=== PATIENT | female | born 1960 | race Hispanic/Latino ===

== ENCOUNTER 2019-06-24 23:21 | Emergency (ER) | payer MEDICARE ==
[~2019-06-24 23:21] MED LIST: ACET1TAB12 PO; AEC81 PO; CALC-322 PO; DILT240C35 PO; DOCO1CAP5 PO; LORA1TAB3 PO; NAPR500T6 PO; SERT100T12 PO; TRAM50TA4 PO
[2019-06-25] MEDS ORDERED: ALBUTEROL SULFATE 0.083% 2.5 MG/3 ML INH IH ONE ×2 (00:51→01:00)
[2019-06-25] MEDS ORDERED: PREDNISONE 20 MG TABLET ONE (01:16)
[2019-06-25] MEDS ORDERED: AZITHROMYCIN 250 MG TABLET PO ONE (01:33)
== END 2019-06-25 02:08 | disposition home or self-care (01) ==
LOC: EDH 23:21
DX: J45.901 Unspecified asthma with (acute) exacerbation (principal); M19.90 Unspecified osteoarthritis, unspecified site; E78.5 Hyperlipidemia, unspecified; I10 Essential (primary) hypertension
CPT/HCPCS: 71046; 94640

== ENCOUNTER 2020-04-07 00:08 | Inpatient (IN) | payer MEDICARE ==
[~2020-04-07] VITALS: Ht 160 cm; Wt 94.2 kg
[2020-04-07] VITALS (8 sets, daily range): BP systolic 113–148; BP diastolic 47–78
[~2020-04-07 00:08] MED LIST changes: +BUSP5TAB3 PO; +DILT-118 PO; -DILT240C35 PO; +METF-444 PO; +MIRA25TA PO; +OMEP40CA13 PO; +SIMV5TAB58 PO; +TRAZ-187 PO
[2020-04-07 00:40] LABS: APPEARANCE,URINE Clear (CLEAR); BILIRUBIN,URINE Negative (NEGATIVE); COLOR,URINE Yellow (YELLOW); GLUCOSE, URINE (UA) TRACE mg/dL (NEGATIVE); KETONES,URINE Negative (NEGATIVE); LEUKOCYTE ESTERASE ,URINE Negative (NEGATIVE); NITRATE,URINE Negative (NEGATIVE); OCCULT BLOOD,URINE Negative (NEGATIVE); PH,URINE >=9.0 (5.0-8.0); PROTEIN,URINE POS 1+ mg/dL (NEGATIVE); UROBILINOGEN,URINE 0.2 mg/dL (0.2-1.0)
[2020-04-07] MEDS ORDERED: ONDANSETRON HCL 4 MG/2 ML VIAL ONE (01:11)
[2020-04-07] MEDS ORDERED: MORPHINE SULFATE 2 MG/ML 1ML SYG ONE (01:11)
[2020-04-07] MEDS ORDERED: ACETAMINOPHEN EXTRA STRENGTH 500 MG TABLET ONE (01:11)
[2020-04-07] MEDS ORDERED: SODIUM CHLORIDE 0.9% 1000ML 1,000 ML IV ONE ×2 (01:12→04:51)
[2020-04-07 01:16] LABS: BASOPHILS % (AUTO) 0.2 % (0.0-5.0); EOSINOPHILS % (AUTO) 0.3 % (0.0-8.0); HEMATOCRIT 33.9 % (36-48); LYMPHOCYTES % (AUTO) 2.8 % (21.0-51.0); MEAN CORPUSCULAR HEMOGLOBIN 27.4 pg (27.0-33.0); MEAN CORPUSCULAR HGB CONC 32.4 g/dL (32.0-36.0); MEAN CORPUSCULAR VOLUME 84.3 fL (79-99); MONOCYTES % (AUTO) 4.3 % (3.0-13.0); NEUTROPHILS % (AUTO) 91.6 % (40.0-77.0); PLATELET COUNT (AUTO) 242 K/uL (130-400); RED BLOOD CELL COUNT(AUTO) 4.02 MIL/uL (4.00-5.50); RED CELL DISTRIBUTION WIDTH 13.8 % (11.0-15.5); WHITE BLOOD COUNT (AUTO) 21.3 K/uL (4.8-10.8)
[2020-04-07 01:47] LABS: CREATININE 0.6 mg/dL (0.5-1.5); POTASSIUM 3.6 mmol/L (3.5-5.1)
[2020-04-07 01:51] LABS: ALBUMIN 3.2 g/dL (3.5-5.0); BILIRUBIN,TOTAL 0.3 mg/dL (0.2-1.0); TOTAL PROTEIN, SERUM 7.6 g/dL (6.0-8.3)
[2020-04-07] MEDS ORDERED: IOHEXOL-350 75 ML VIAL IV ONE (02:38)
[2020-04-07] MEDS ORDERED: ZOSYN 3.375GM+NS 50ML 50 ML IV ONE (04:05)
[2020-04-07] MEDS ORDERED: VANCOMYCIN 1GM+NS 250ML 500 ML IV ONE (04:51)
[2020-04-07 06:31] LABS: HEMATOCRIT 31.9 % (36-48); MEAN CORPUSCULAR HEMOGLOBIN 27.2 pg (27.0-33.0); MEAN CORPUSCULAR HGB CONC 31.7 g/dL (32.0-36.0); MEAN CORPUSCULAR VOLUME 85.8 fL (79-99); RED BLOOD CELL COUNT(AUTO) 3.72 MIL/uL (4.00-5.50); WHITE BLOOD COUNT (AUTO) 26.2 K/uL (4.8-10.8)
[2020-04-07] MEDS ORDERED: PREG50CA63 PO (06:40)
[2020-04-07] MEDS ORDERED: ALBU8.5H8 IH (06:40)
[2020-04-07] MEDS ORDERED: CALC600T15 PO (06:40)
[2020-04-07 06:50] LABS: CREATININE 0.7 mg/dL (0.5-1.5); MAGNESIUM 1.4 mg/dL (1.80-2.40); POTASSIUM 4.3 mmol/L (3.5-5.1)
[2020-04-07] MEDS ORDERED: DEXTROSE 50%-WATER 50 ML DISP.SYRIN IV PRN ×2 (08:00→11:00)
[2020-04-07] MEDS ORDERED: GLUCAGON 1MG KIT 1 MG ML IM PRN ×2 (08:00→11:00)
[2020-04-07] MEDS ORDERED: MORPHINE SULFATE 2 MG/ML 1ML SYG IVP PRN ×2 (11:00→20:00)
[2020-04-07] MEDS ORDERED: INSULIN R PO SS1 SQ SCH (11:30)
[2020-04-07] MEDS: INSULIN HUMULIN R 100 UNIT/ML 3ML SQ SCH ×3 (11:30→21:48)
[2020-04-07] MEDS ORDERED: MAGNESIUM 2GM PREMIX 50ML 50 ML IV PRN (12:45)
[2020-04-07] MEDS: ZOSYN 3.375GM+NS 50ML 50 ML IV SCH ×2 (13:06→21:44)
[2020-04-07 13:43] LABS: INR 1.06 (0.85-1.15); PROTHROMBIN TIME 11.4 SEC (9.6-11.6)
[2020-04-07] MEDS: INSULIN GLARGINE 100 UNITS/ML 10 ML VIAL SQ SCH ×2 (14:30→21:48)
[2020-04-07] MEDS: LACTATED RINGERS 1000ML 1,000 ML IV SCH (14:55)
[2020-04-07] MEDS ORDERED: FENTANYL CITRATE PF 50 MCG/1 ML 2ML VIAL ONE (15:11)
[2020-04-07] MEDS ORDERED: MIDAZOLAM HCL 1 MG/ML 2ML VIAL ONE (15:12)
[2020-04-08] VITALS (7 sets, daily range): BP systolic 129–147; BP diastolic 61–74
[2020-04-08] MEDS: MORPHINE SULFATE 2 MG/ML 1ML SYG IVP PRN ×6 (01:32→22:03)
[2020-04-08] MEDS: LACTATED RINGERS 1000ML 1,000 ML IV SCH ×3 (05:20→22:05)
[2020-04-08] MEDS: ZOSYN 3.375GM+NS 50ML 50 ML IV SCH ×3 (05:20→22:02)
[2020-04-08 05:26] LABS: HEMATOCRIT 33.9 % (36-48); MEAN CORPUSCULAR HEMOGLOBIN 27.3 pg (27.0-33.0); MEAN CORPUSCULAR HGB CONC 32.2 g/dL (32.0-36.0); MEAN CORPUSCULAR VOLUME 84.8 fL (79-99); RED CELL DISTRIBUTION WIDTH 14.2 % (11.0-15.5); WHITE BLOOD COUNT (AUTO) 19.5 K/uL (4.8-10.8)
[2020-04-08 05:54] LABS: ALBUMIN 2.6 g/dL (3.5-5.0); BILIRUBIN,TOTAL 0.5 mg/dL (0.2-1.0); CREATININE 0.6 mg/dL (0.5-1.5); POTASSIUM 3.8 mmol/L (3.5-5.1); TOTAL PROTEIN, SERUM 7.4 g/dL (6.0-8.3)
[2020-04-08] MEDS: INSULIN HUMULIN R 100 UNIT/ML 3ML SQ SCH ×4 (06:16→22:52)
[2020-04-08] MEDS: ONDANSETRON HCL 4 MG/2 ML VIAL IVP PRN ×2 (08:17→22:02)
[2020-04-08] MEDS: ENOXAPARIN SODIUM 30 MG/0.3 ML SQ SCH (08:21)
[2020-04-08] MEDS: INSULIN GLARGINE 100 UNITS/ML 10 ML VIAL SQ SCH (22:13)
[2020-04-09] MEDS: MORPHINE SULFATE 2 MG/ML 1ML SYG IVP PRN ×3 (03:12→11:20)
[2020-04-09 03:49] VITALS: BP 129/58
[2020-04-09] MEDS: ZOSYN 3.375GM+NS 50ML 50 ML IV SCH ×3 (06:28→20:19)
[2020-04-09] MEDS: INSULIN HUMULIN R 100 UNIT/ML 3ML SQ SCH ×4 (06:29→20:23)
[2020-04-09 08:00] VITALS: BP 121/67
[2020-04-09] MEDS: ENOXAPARIN SODIUM 30 MG/0.3 ML SQ SCH (08:38)
[2020-04-09] MEDS ORDERED: SIMETHICONE 80 MG TAB.CHEW ONE (11:35)
[2020-04-09] MEDS ORDERED: SIMETHICONE 80 MG TAB.CHEW PO PRN (11:45)
[2020-04-09 12:00] VITALS: BP 116/63
[2020-04-09] MEDS: LACTATED RINGERS 1000ML 1,000 ML IV SCH (12:23)
[2020-04-09 16:00] VITALS: BP 125/57
[2020-04-09 20:00] VITALS: BP 146/77
[2020-04-09] MEDS: INSULIN GLARGINE 100 UNITS/ML 10 ML VIAL SQ SCH (20:22)
[2020-04-09] MEDS ORDERED: KETOROLAC TROMETHAMINE 30MG/ML ONE (21:53)
[2020-04-09 23:22] VITALS: BP 123/42
[2020-04-10 03:47] VITALS: BP 123/48
[2020-04-10] MEDS: LACTATED RINGERS 1000ML 1,000 ML IV SCH ×2 (03:51→20:43)
[2020-04-10] MEDS: ZOSYN 3.375GM+NS 50ML 50 ML IV SCH ×3 (03:58→20:32)
[2020-04-10 05:57] LABS: BASOPHILS % (AUTO) 0.3 % (0.0-5.0); EOSINOPHILS % (AUTO) 0.8 % (0.0-8.0); HEMATOCRIT 29.9 % (36-48); LYMPHOCYTES % (AUTO) 13.4 % (21.0-51.0); MEAN CORPUSCULAR HEMOGLOBIN 26.9 pg (27.0-33.0); MEAN CORPUSCULAR HGB CONC 32.1 g/dL (32.0-36.0); MEAN CORPUSCULAR VOLUME 83.8 fL (79-99); MONOCYTES % (AUTO) 7.7 % (3.0-13.0); PLATELET COUNT (AUTO) 237 K/uL (130-400); RED BLOOD CELL COUNT(AUTO) 3.57 MIL/uL (4.00-5.50); RED CELL DISTRIBUTION WIDTH 14.3 % (11.0-15.5); WHITE BLOOD COUNT (AUTO) 7.3 K/uL (4.8-10.8)
[2020-04-10 06:02] LABS: CREATININE 0.4 mg/dL (0.5-1.5); POTASSIUM 3.1 mmol/L (3.5-5.1)
[2020-04-10] MEDS: INSULIN HUMULIN R 100 UNIT/ML 3ML SQ SCH ×4 (06:14→21:00)
[2020-04-10 08:00] VITALS: BP 131/63
[2020-04-10] MEDS: FAMOTIDINE/PF 20 MG/2 ML VIAL IV SCH ×2 (08:07→20:32)
[2020-04-10] MEDS: ENOXAPARIN SODIUM 30 MG/0.3 ML SQ SCH (08:07)
[2020-04-10] MEDS ORDERED: KETOROLAC TROMETHAMINE 30MG/ML ONE ×2 (10:49→20:25)
[2020-04-10] MEDS: KETOROLAC TROMETHAMINE 15MG/ML IV PRN ×2 (10:54→20:42)
[2020-04-10 12:00] VITALS: BP 132/54
[2020-04-10 16:00] VITALS: BP 130/62
[2020-04-10] MEDS ORDERED: LIDOCAINE HCL-MPF 1% 2ML VIAL IV PRN (16:30)
[2020-04-10] MEDS ORDERED: POTASSIUM CHLORIDE 10% ELIXIR 20 MEQ/15 ML UDCUP PO PRN (16:30)
[2020-04-10] MEDS ORDERED: POTASSIUM CHLORIDE 20MEQ/100ML 100 ML IV PRN (16:30)
[2020-04-10] MEDS: POTASSIUM CHLORIDE 20 MEQ ERTAB PO PRN ×2 (18:34→20:44)
[2020-04-10 19:31] VITALS: BP_SYST 135; BP_DIAS 61; BP_DIAS 87
[2020-04-10] MEDS: INSULIN GLARGINE 100 UNITS/ML 10 ML VIAL SQ SCH (21:04)
[2020-04-11 00:03] VITALS: BP 121/50
[2020-04-11] MEDS: MORPHINE SULFATE 2 MG/ML 1ML SYG IVP PRN ×2 (01:01→22:38)
[2020-04-11 03:38] VITALS: BP 144/54
[2020-04-11] MEDS: KETOROLAC TROMETHAMINE 15MG/ML IV PRN (03:40)
[2020-04-11] MEDS: ZOSYN 3.375GM+NS 50ML 50 ML IV SCH ×3 (06:42→21:38)
[2020-04-11] MEDS: INSULIN HUMULIN R 100 UNIT/ML 3ML SQ SCH ×4 (06:49→21:54)
[2020-04-11 08:00] VITALS: BP 129/58
[2020-04-11] MEDS: FAMOTIDINE/PF 20 MG/2 ML VIAL IV SCH ×2 (10:11→21:38)
[2020-04-11] MEDS: ENOXAPARIN SODIUM 30 MG/0.3 ML SQ SCH (10:11)
[2020-04-11] MEDS ORDERED: KETOROLAC TROMETHAMINE 30MG/ML ONE ×2 (10:20→18:24)
[2020-04-11 11:54] VITALS: BP 137/65
[2020-04-11 16:00] VITALS: BP 139/65
[2020-04-11] MEDS: LACTATED RINGERS 1000ML 1,000 ML IV SCH ×2 (18:29→23:40)
[2020-04-11 19:00] VITALS: BP 128/47
[2020-04-11] MEDS: INSULIN GLARGINE 100 UNITS/ML 10 ML VIAL SQ SCH (21:53)
[2020-04-12] VITALS: BP 128/47
[2020-04-12] MEDS: MORPHINE SULFATE 2 MG/ML 1ML SYG IVP PRN (01:55)
[2020-04-12 04:00] VITALS: BP 136/57
[2020-04-12] MEDS: ZOSYN 3.375GM+NS 50ML 50 ML IV SCH ×2 (06:41→13:00)
[2020-04-12] MEDS: INSULIN HUMULIN R 100 UNIT/ML 3ML SQ SCH ×3 (06:51→16:39)
[2020-04-12 08:04] VITALS: BP 140/56
[2020-04-12] MEDS: FAMOTIDINE/PF 20 MG/2 ML VIAL IV SCH (09:17)
[2020-04-12] MEDS: ENOXAPARIN SODIUM 30 MG/0.3 ML SQ SCH (09:18)
[2020-04-12] MEDS: ACETAMINOPHEN 325 MG TAB PO PRN ×2 (09:28→16:36)
[2020-04-12 11:03] VITALS: BP 138/64
[2020-04-12] MEDS: LACTATED RINGERS 1000ML 1,000 ML IV SCH (13:55)
[2020-04-12 16:35] VITALS: BP 157/69
== END 2020-04-12 19:02 | disposition home health service (06) | DRG 871 ==
LOC: EDH 00:08 → EDHIP 04:37 → 3AH 05:16
PROVIDERS: ADMIT Internal Medicine; ATTEND Internal Medicine
PROC: 0D9W30Z Drainage of Peritoneum with Drainage Device, Percutaneous Approach (ICD-10-PCS; principal; 2020-04-07)
DX: A41.51 Sepsis due to Escherichia coli [E. coli] (principal); K65.1 Peritoneal abscess; E11.9 Type 2 diabetes mellitus without complications; Z96.653 Presence of artificial knee joint, bilateral; E83.42 Hypomagnesemia; I10 Essential (primary) hypertension; R53.81 Other malaise; E66.01 Morbid (severe) obesity due to excess calories; Z90.49 Acquired absence of other specified parts of digestive tract; Z83.3 Family history of diabetes mellitus; Z68.36 Body mass index [BMI] 36.0-36.9, adult
CPT/HCPCS: 10030; 36415; 74018; 74177; 77012; 78227; 80048; 80053; 81003; 82948; 83605; 83690; 83735; 84132; 84484; 85025; 85027; 85610; 87040; 87071; 87077; 87186; 87205; 99152; 99153; A9537; G0378; J1650; J1815; J1885; J2250; J2405; J2543; J3010; J3370; J3475; J3490; J7030; J7120; Q9967

== ENCOUNTER 2020-05-06 07:11 | Day surgery (SDC) | payer MEDICARE ==
[2020-05-04 09:54] LABS: INR 1.01 (0.85-1.15); PROTHROMBIN TIME 10.8 SEC (9.6-11.6)
[2020-05-04 09:55] LABS: PARTIAL THROMBOPLASTIN TIME 24.7 SEC (26.3-35.5)
[2020-05-04 10:05] LABS: CREATININE 0.5 mg/dL (0.5-1.5)
[~2020-05-06 07:11] MED LIST changes: +ALBU8.5H8 IH; +CALC-1125 PO; -CALC-322 PO; -LORA1TAB3 PO; -NAPR500T6 PO; -OMEP40CA13 PO; +OMEP40CA21 PO; +PREG50CA63 PO; +SERT-440 PO; -SERT100T12 PO
[2020-05-06 07:31] LABS: BASOPHILS % (AUTO) 0.6 % (0.0-5.0); EOSINOPHILS % (AUTO) 2.7 % (0.0-8.0); HEMATOCRIT 37.4 % (36-48); LYMPHOCYTES % (AUTO) 20.4 % (21.0-51.0); MEAN CORPUSCULAR HEMOGLOBIN 27.1 pg (27.0-33.0); MEAN CORPUSCULAR HGB CONC 31.8 g/dL (32.0-36.0); MEAN CORPUSCULAR VOLUME 85.2 fL (79-99); MONOCYTES % (AUTO) 4.3 % (3.0-13.0); NEUTROPHILS % (AUTO) 71.7 % (40.0-77.0); PLATELET COUNT (AUTO) 200 K/uL (130-400); RED BLOOD CELL COUNT(AUTO) 4.39 MIL/uL (4.00-5.50); RED CELL DISTRIBUTION WIDTH 15.1 % (11.0-15.5); WHITE BLOOD COUNT (AUTO) 6.9 K/uL (4.8-10.8)
[2020-05-06] MEDS ORDERED: 0.9%NACL 1000ML 1,000 ML IV ONE (08:09)
[2020-05-06] MEDS ORDERED: IODIXANOL 320 MG/ML 100 ML VIAL ONE (08:22)
[2020-05-06] MEDS ORDERED: LIDOCAINE HCL 1% MDV 50ML VIAL ONE (08:22)
== END 2020-05-06 09:20 | disposition home or self-care (01) ==
LOC: DAH 07:11
PROVIDERS: ATTEND Surgery
DX: L02.211 Cutaneous abscess of abdominal wall (principal); E11.9 Type 2 diabetes mellitus without complications; I10 Essential (primary) hypertension; E78.00 Pure hypercholesterolemia, unspecified; Z90.49 Acquired absence of other specified parts of digestive tract; Z79.01 Long term (current) use of anticoagulants; Z79.899 Other long term (current) drug therapy
CPT/HCPCS: 36415 ×2; 49424; 76080; 82565; 82948; 84520; 85025; 85610; 85730; A4215; A4216; A4221; A4222; A4223 ×3; A4606; A4663; A6260; J3490; J7030; Q9967

== ENCOUNTER 2023-02-02 22:33 | Emergency (ER) | payer MEDICARE, OTHER ==
[~2023-02-02] VITALS: Ht 157.5 cm; Wt 91.2 kg
[~2023-02-02 22:33] MED LIST changes: -PREG50CA63 PO; +PREG50CA64 PO
[2023-02-02 22:34] VITALS: BP 168/69; PULSE 104; RESP 16
== END 2023-02-03 01:35 | disposition left against medical advice (07) ==
LOC: EDH 22:33
DX: R50.9 Fever, unspecified (principal); M79.10 Myalgia, unspecified site; Z53.21 Procedure and treatment not carried out due to patient leaving prior to being seen by health care provider
CPT/HCPCS: 99281